=== PATIENT | male | born 1990 | race American Indian/Alaskan Native ===

== ENCOUNTER 2017-01-10 18:19 | Emergency (ER) | payer OTHER, BC ==
[2017-01-10 23:50] VITALS: BP 130/68
[2017-01-11] MEDS ORDERED: MOTRIN PO ONE (01:14)
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
== END 2017-01-11 04:08 | disposition home or self-care (01) ==
LOC: ED 18:19
DX: S13.4XXA Sprain of ligaments of cervical spine, initial encounter (principal); S39.012A Strain of muscle, fascia and tendon of lower back, initial encounter; F17.200 Nicotine dependence, unspecified, uncomplicated; V49.49XA Driver injured in collision with other motor vehicles in traffic accident, initial encounter; X58.XXXA Exposure to other specified factors, initial encounter; Y93.9 Activity, unspecified; Y92.9 Unspecified place or not applicable; Y99.9 Unspecified external cause status
CPT/HCPCS: 72100; 99284